=== PATIENT | female | born 1965 | race Two or more races ===

== ENCOUNTER 2016-06-15 12:06 | Day surgery (SDC) | payer OTHER ==
[~2016-06-15] VITALS: Ht 167.6 cm; Wt 87.8 kg
[2016-06-15 14:10] VITALS: Ht 167.6 cm; Wt 87.8 kg
[2016-06-15] MEDS ORDERED: OMEP20CA16 PO (14:18)
[2016-06-15 14:46] VITALS: BP 122/73; PULSE 72; RESP 16
[2016-06-15] MEDS ORDERED: FENTAnyl 50 MCG/ML VIAL ONE (15:15)
[2016-06-15] MEDS ORDERED: MIDAZOLAM 1 MG/ML 2 ML INJ ONE (15:15)
[2016-06-15 15:25] VITALS: BP 97/69; PULSE 78; RESP 18
--- NOTE | 2016-06-15 18:31 | GILP ---
DATE OF PROCEDURE: NAME OF PROCEDURE: Colonoscopy. SURGEON: Cr Espinoza MD PREOPERATIVE DIAGNOSIS: Screening colonoscopy. POSTOPERATIVE DIAGNOSES: 1. Colonoscopy all the way to the cecum. 2. Internal hemorrhoids. 3. No colon neoplasm was identified. INDICATION FOR THE PROCEDURE: Ms. Kyra Diaz is a 51-year-old female patient who was scheduled for screening colonoscopy. The procedure and possible complications were well explained to the patient. The patient understood and consented to the procedure. DESCRIPTION OF PROCEDURE: Under the influence of fentanyl and Versed, the colonoscope was carefully introduced in the rectum, and under direct vision, it was advanced all the way to the cecum. FINDINGS: The patient had internal hemorrhoids. No colon neoplasm was identified. She tolerated the procedure very well. There was no complication from the procedure. At the end of procedure, she was awake with stable vital signs, and she was discharged home to care of her family . IMPRESSION: 1. Colonoscopy all the way to the cecum. 2. Internal hemorrhoids. 3. No colon neoplasm was identified. PLAN: Next screening colonoscopy in 10 years. Dictated By: CR GARCIA/MARCELO Conf#: [id number] DID#: [id number]
== END 2016-06-15 16:40 | disposition home or self-care (01) ==
LOC: GIL 12:06
PROVIDERS: ATTEND Internal Medicine Gastroenterology
DX: Z12.11 Encounter for screening for malignant neoplasm of colon (principal); K64.8 Other hemorrhoids
CPT/HCPCS: 45378; J2250; J3010; Z7610

== ENCOUNTER 2016-11-02 07:25 | Day surgery (SDC) | payer OTHER ==
[2016-11-02] VITALS (17 sets, daily range): BP systolic 94–140; BP diastolic 55–82; PULSE 65–90; RESP 14–21; Ht 167.6 cm; Wt 91.0 kg
[~2016-11-02] VITALS: Ht 167.6 cm; Wt 91.0 kg
[~2016-11-02 07:25] MED LIST: ATROPINE 1 MG/10 ML SYRINGE IV PRN; CEFAZOLIN 1 GM INJ ONE; DIPHENHYDRAMINE 50 MG INJ IV PRN; EPHEDrine SULFATE 50 MG/5 ML SYG IV PRN; FENTAnyl 250MCG INJ ONE; FENTAnyl 50 MCG/ML VIAL IV PRN; GLYCOPYRROLATE 1 MG INJ ONE; HYDROmorphONE (0.2 MG/ML) 10ML SYG IV PRN; LABETALOL HCL 20MG INJ IV PRN; LIDOCAINE 2% (SDV) 5 ML INJ ONE; MEPERIDINE 25 MG INJ IV PRN; MIDAZOLAM 1 MG/ML 2 ML INJ IV PRN; MIDAZOLAM 1 MG/ML 2 ML INJ ONE; NEOSTIGMINE 3 MG/3 ML SYRINGE ONE; OMEP20CA16 PO; ONDANSETRON 4 MG INJ IV PRN; ONDANSETRON 4 MG INJ ONE; OXYCODONE/ACETAMINOPHEN (5/325) TAB PO PRN; PROPOFOL 200 MG INJ ONE; ROCURONIUM 50 MG INJ ONE; hydrALAzine 20 MG INJ IV PRN; hydrALAzine 20 MG INJ ONE; morphine (1 MG/ML) 10ML SYRINGE IV PRN
--- NOTE | 2016-11-02 07:37 | HPN ---
Date/Time of Note Date/Time of Note DATE: 11/02/16 TIME: 07:37 Interval H&P Admission Note Pt. seen H&P reviewed: No system changes GUSTAVO GREER MD Nov 02, 2016 07:37
[2016-11-02] MEDS ORDERED: BUPIVACAINE 0.25% (MPF) 30 ML INJ ONE (11:12)
--- NOTE | 2016-11-02 12:30 | OPR ---
Date/Time of Note Date/Time of Note DATE: 11/02/16 TIME: 12:25 Operative Report Procedure Date: Nov 02, 2016 Preoperative Diagnosis Gallstones without obstruction Postoperative Diagnosis Gallstones without obstruction Operation Performed Laparoscopic cholecystectomy Surgeon: GUSTAVO GREER MD Anesthesia Type: general Anesthesiologist: ODETTE OLIVARES MD Estimated Blood Loss: 0 - 10 ml's Transfusion Required: no Specimens Gallbladder Grafts/Implants: none Complications: no Pt Condition Post Procedure: stable Disposition: PACU Indications Symptomatic Operative\Procedure Findings Chronically inflamed gallbladder Procedure Description After satisfactory general endotracheal anesthesia was achieved, the abdomen was insufflated with carbon dioxide through an umbilical Veress needle to 15 mmHg pressure. Veress needle was removed and the umbilical incision extended to 5 mm through which a 5 mm trocar was placed. A 5 mm 0 lens was placed. Upper endoscopy showed a chronically inflamed gallbladder. Under direct visualization a 12 mm epigastric trocar was placed as well as 2 5 mm right lateral abdominal trochars. Dome of the gallbladder was grasped and retracted superiorly. Vaca's pouch was grasped and retracted inferolaterally. The hepatoduodenal ligament was carefully dissected between the gallbladder and the well-visualized colin hepatis. The cystic duct was then triply hemoclipped and divided high at the junction of the gallbladder and the cystic duct. The cystic artery was identified immediately posteriorly and was triply hemoclipped and divided. The gallbladder was then dissected from below using electrocautery dissection and placed fully intact into an Endo Catch removed via the epigastric route. Hemostasis of the liver bed was total and irrigant returned clear. The abdomen was then desufflated and the trochars were removed. The fascia of the epigastrium was closed with suture of 0 Vicryl. The skin punctures were infiltrated with 30 cc of 0.25% plain Marcaine, and closed with suresh. Sponge and needle counts were reported as correct 2. GUSTAVO GREER MD Nov 02, 2016 12:30
[2016-11-02] MEDS ORDERED: LABETALOL HCL 20MG INJ IV PRN (13:00)
[2016-11-02] MEDS ORDERED: morphine (1 MG/ML) 10ML SYRINGE IV PRN (13:00)
[2016-11-02] MEDS ORDERED: ONDANSETRON 4 MG INJ IV PRN (13:00)
[2016-11-02] MEDS ORDERED: DIPHENHYDRAMINE 50 MG INJ IV PRN (13:00)
[2016-11-02] MEDS ORDERED: FENTAnyl 50 MCG/ML VIAL IV PRN (13:00)
[2016-11-02] MEDS ORDERED: MEPERIDINE 25 MG INJ IV PRN (13:00)
[2016-11-02] MEDS ORDERED: METOCLOPRAMIDE 10 MG INJ IV PRN (13:00)
[2016-11-02] MEDS ORDERED: hydrALAzine 20 MG INJ IV PRN (13:00)
== END 2016-11-02 14:53 | disposition home or self-care (01) ==
LOC: SDS 07:25
PROVIDERS: ATTEND Surgery
DX: K80.10 Calculus of gallbladder with chronic cholecystitis without obstruction (principal)
CPT/HCPCS: 47562; 84703; 88304; J0360; J0690; J2175; J2250; J2405; J2710; J3010; Z7512; Z7610